=== PATIENT | male | born 1965 | race Caucasian/White ===

== ENCOUNTER → 2018-10-14 | Outpatient (CLI) | payer BC ==
[~2018-10-14] MED LIST: CLINDAMYCIN 300MG 50 ML IV ONE; GENTAMICIN 120MG/NS 100ML 100 ML ONE; HYDRALAZINE HCL10 MG PO; LEXAPRO10 MG PO
[2018-10-14 13:34] LABS: BASOPHILS % 0.3 % (0.0-1.0); EOSINOPHILS # (AUTO) 0.2 (0.0-0.4); HEMATOCRIT 45.2 % (38.2-49.6); HEMOGLOBIN 15.6 g/dL (14.0-18.0); LYMPHOCYTES # (AUTO) 2.8 (1.0-3.2); LYMPHOCYTES % 23.9 % (18.0-39.1); MEAN CORPUSCULAR HEMOGLOBIN 28.3 pg (28-32); MEAN CORPUSCULAR HGB CONC 34.5 g/dL (31-35); MEAN CORPUSCULAR VOLUME 81.9 fL (81-99); MONOCYTES # (AUTO) 1.2 (0.2-0.8); MONOCYTES % 10.1 % (4.4-11.3); NEUTROPHILS # (AUTO) 7.4 (2.1-6.9); NEUTROPHILS % 63.4 % (38.7-80.0); PLATELET COUNT 466 x10e3/uL (140-360); RED BLOOD COUNT 5.52 x10e6/uL (4.3-5.7); RED CELL DISTRIBUTION WIDTH 13.6 % (11.7-14.4)
[2018-10-14 13:48] LABS: ANION GAP 14.1 mmol/L (8-16); BLOOD UREA NITROGEN 14 mg/dL (7-26); BUN/CREATININE RATIO 16 (6-25); CALCIUM 9.7 mg/dL (8.4-10.2); CARBON DIOXIDE 24 mmol/L (22-29); CHLORIDE 103 mmol/L (98-107); CREATININE, SERUM 0.87 mg/dL (0.72-1.25); EST GLOMERULAR FILTRATION RATE > 60 ML/MIN (60-); GLUCOSE 93 mg/dL (74-118); POTASSIUM 4.1 mmol/L (3.5-5.1); SODIUM 137 mmol/L (136-145)
--- OUTSIDE RECORDS SUMMARY | 2018-10-15 09:47 | XMS REPORT | Clinical Summary ---
Author Author [facility] Organization [facility] Address Unknown Phone Unavailable Care Team Providers Care Ict Development Manager Name Role Phone System, Provider Not In MD PCP Unavailable Allergies No Known Allergies Medications Not on file Active Problems Not on file Encounters Care Team Description Date Type Specialty Quan Doyle MD Postural dizziness with near syncope (Primary Dx); Chest discomfort 07/21/2018 Emergency Emergency Medicine after 10/14/2017 Social History Date Tobacco Use Types Packs/Day Years Used Quit: 2008 Former Smoker Alcohol Use Drinks/Week oz/Week Comments No Alcohol Habits Answer Date Recorded How often do you have a drink containing alcohol? Never 07/21/2018 How many drinks containing alcohol do you have on Not asked a typical day when you are drinking? How often do you have six or more drinks on one Not asked occasion? Sex Assigned at Date Recorded Not on file Industry Job Start Date Occupation Not on file Not on file Not on file Travel End Travel History Travel Start No recent travel history available. Last Filed Vital Signs Time Taken Vital Sign Reading 07/21/2018 1:15 PM CDT Blood Pressure 135/75 07/21/2018 1:15 PM CDT Pulse 75 07/21/2018 10:08 AM CDT Temperature 36.4 C (97.6 F) 07/21/2018 1:15 PM CDT Respiratory Rate 18 07/21/2018 1:15 PM CDT Oxygen Saturation 98% - Inhaled Oxygen - Concentration 07/21/2018 10:11 AM CDT Weight 88.5 kg (195 lb) 07/21/2018 10:11 AM CDT Height 167.6 cm (5' 6") 07/21/2018 10:11 AM CDT Body Mass Index 31.47 Plan of Treatment Health Maintenance Due Date Last Done Comments COLON CANCER SCREENING 2016 SHINGLES VACCINES (#1) 2016 INFLUENZA VACCINE 12/09/2018 Procedures Comments Procedure Name Priority Date/Time Associated Diagnosis XR CHEST 1 VW PORTABLE STAT 07/21/2018 10:55 AM CDT ESTIMATED GFR STAT 07/21/2018 10:40 AM CDT CREATINE KINASE, TOTAL STAT 07/21/2018 (CPK) 10:40 AM CDT TROPONIN STAT 07/21/2018 10:40 AM CDT B NATRIURETIC PEPTIDE STAT 07/21/2018 10:40 AM CDT COMPREHENSIVE METABOLIC STAT 07/21/2018 PANEL 10:40 AM CDT PARTIAL THROMBOPLASTIN STAT 07/21/2018 TIME (PTT) 10:40 AM CDT PROTHROMBIN TIME WITH INR STAT 07/21/2018 10:40 AM CDT HC COMPLETE BLD COUNT STAT 07/21/2018 W/AUTO DIFF 10:40 AM CDT ECG ED PRELIMINARY Routine 07/21/2018 INTERPRETATION 10:20 AM CDT ECG 12-LEAD STAT 07/21/2018 10:13 AM CDT after 10/14/2017 Results * XR Chest 1 Vw Portable (07/21/2018 10:55 AM CDT) Specimen Narrative Performed At EXAMINATION:XR CHEST 1 VW PORTABLE RADIANT CLINICAL HISTORY:Chest painnormal ekg, Shortness of breath XR CHEST 1 VW PORTABLEimages are submitted COMPARISON:NONE FINDINGS: The cardiac silhouette is normal in size. The pulmonary vasculature is within normal limits. The lung zones have no focal area of consolidation. There is no pleural effusion or pneumothorax. IMPRESSION: 1. There is no acute cardiopulmonary disease. [id number] Procedure Note Hm Interface, Radiology Results Incoming - 07/21/2018 11:02 AM CDT EXAMINATION: XR CHEST 1 VW PORTABLE CLINICAL HISTORY: Chest pain normal ekg, Shortness of breath XR CHEST 1 VW PORTABLE images are submitted COMPARISON: NONE FINDINGS: The cardiac silhouette is normal in size. The pulmonary vasculature is within normal limits. The lung zones have no focal area of consolidation. There is no pleural effusion or pneumothorax. IMPRESSION: 1. There is no acute cardiopulmonary disease. [id number] Performing Organization Address [facility]/Zipcode Phone Number [place] [address] [place] [address] * Estimated GFR (07/21/2018 10:40 AM CDT) [facility] Estimated GFR >=90 mL/min/1.73 m2 [place] Comment: ROMAN CATHOLIC [facility] rpretation G1 >=90 Normal or high G2 60-89Mildly decreased [id number] Mildly to moderately decreased [id number] Moderately to severely decreased G4 15-29Severely decreased G5 <15Kidney failure The eGFR was calculated using the Chronic Kidney Disease Epidemiology Collaboration (CKD-EPI) equation. Interpretation is based on recommendations of the National Kidney Foundation-Kidney Disease Outcomes Quality Initiative (NKF-KDOQI) published in 2014. Specimen Plasma specimen Performing Organization Address [facility] Phone Number [address] [place] [address] PATHOLOGY AND [facility] [address] * Troponin (07/21/2018 10:40 AM CDT) [facility] Troponin <0.300 0.000 - 0.300 ng/mL [place] Comment: [facility] 0.30 - 1.49 [facility] ng/mlMay indicate increased risk of acute coronary syndrome. >=1.5 ng/ml Consistent with acute myocardial infarction. The diagnostic value of a single normal or non-diagnostic result is questionable.Serial samples at 2-6 hour intervals are required to rule out acute myocardial injury. Specimen Plasma specimen Performing Organization Address [facility] Phone Number [address] [place] [address] PATHOLOGY AND [facility] [address] * Partial thromboplastin time, activated (07/21/2018 10:40 AM CDT) [facility] PTT 29.9 23.0 - 36.0 sec [place] Comment: [facility] PTT therapeutic range for [facility] unfractionated heparin is 61.0-112.0 seconds which corresponds to Anti-Xa 0.3-0.7 U/ml. Specimen Blood Performing Organization Address City/[facility]/Zipcode Phone Number [address] [place] [address] PATHOLOGY AND [facility] [address] * Prothrombin time with INR (07/21/2018 10:40 AM CDT) [facility] Prothrombin 12.0 11.5 - 14.5 sec [place] time [facility] INR 0.9 [place] Comment: [facility] The International Normalized [facility] Ratio (INR) is a therapeutic monitoring tool for patients who are stable on oral anticoagulant therapy. An INR of 2.0-3.0 is suggested for deep vein thrombosis/pulmonary embolism. Specimen Blood Performing Organization Address [facility] Phone Number [address] [place] [address] PATHOLOGY AND [facility]OMIC MEDICINE [address] * CBC with platelet and differential (07/21/2018 10:40 AM CDT) [facility] WBC 14.81 (H) 4.50 - 11.00 k/uL [facility] RBC 5.22 4.40 - 6.00 m/uL [facility] HGB 14.7 14.0 - 18.0 g/dL [facility] HCT 43.8 41.0 - 51.0 % [facility] MCV 83.9 82.0 - 100.0 fL [facility] MCH 28.2 27.0 - 34.0 pg [facility] MCHC 33.6 31.0 - 37.0 g/dL [facility] RDW - SD 40.8 37.0 - 55.0 fL [facility] MPV 9.2 8.8 - 13.2 fL [facility] Platelet count 455 (H) 150 - 400 k/uL [facility] Nucleated RBC 0.00 /100 WBC [facility] Neutrophils 74.0 (H) 39.0 - 69.0 % [facility] Lymphocytes 15.4 (L) 25.0 - 45.0 % [facility] Monocytes 8.0 0.0 - 10.0 % [facility] Eosinophils 2.0 0.0 - 5.0 % [facility] Basophils 0.3 0.0 - 1.0 % [facility] Specimen Blood Performing Organization Address City/[facility] Phone Number [facility] DEPARTMENT [address] [place] [address] PATHOLOGY AND GENOMIC MEDICINE [address] * B natriuretic peptide (07/21/2018 10:40 AM CDT) Pathologist [facility] BNP 23 0 - 100 pg/mL [facility] Specimen Blood Performing Organization Address [facility] Phone Number [address] [place] [address] PATHOLOGY AND GENOMIC MEDICINE [address] * Creatine kinase, total (CPK) (07/21/2018 10:40 AM CDT) [facility] Creatine kinase 31 (L) 39 - 308 U/L [facility] Specimen Plasma specimen Performing Organization Address [facility] Phone Number [address] [place] [address] PATHOLOGY AND GENOMIC MEDICINE [address] * Comprehensive metabolic panel (07/21/2018 10:40 AM CDT) Sodium 141 135 - 148 mEq/L [facility] Potassium 4.2 3.5 - 5.0 mEq/L [facility] Chloride 103 98 - 112 mEq/L [facility] CO2 26 24 - 31 mEq/L [facility] Anion gap 12@ANIO 7 - 15 mEq/L [facility] BUN 8 6 - 20 mg/dL [facility] Creatinine 0.90 0.70 - 1.20 mg/dL [facility] Glucose 106 (H) 65 - 99 mg/dL [facility] Calcium 9.9 8.3 - 10.2 mg/dL [facility] Protein 7.8 6.3 - 8.3 g/dL [place] Comment: [facility] 4.6-7.0 g/dL 1 week 4.4-7.6 g/dL 7 months-1year 5.1-7.3 g/dL 1-2 years5.6-7 .5 g/dL >3 years6.0-8 .0 g/dL 18-150 6.3-8.3 g/dL Albumin 4.5 3.5 - 5.0 g/dL [facility] A/G ratio 1.4 0.7 - 3.8 [facility] Alkaline 107 40 - 129 U/L [place] phosphatase [facility] AST 26 10 - 50 U/L [facility] ALT 54 (H) 5 - 50 U/L [facility] Total bilirubin 0.5 0.0 - 1.2 mg/dL [facility] Specimen Plasma specimen Performing Organization Address City/State/Zipcode Phone Number [facility] [place] [id number] [place] [address] [place] [address] PATHOLOGY AND GENOMIC MEDICINE [facility] [id number] [place] [address] * ECG ED Preliminary Interpretation - Not an Order (07/21/2018 10:20 AM CDT) Narrative Performed At Quan Doyle MD 07/22/20189:07 AM ECG ED Preliminary Interpretation - Not an Order Performed by: Quan Doyle MD Authorized by: Quan Doyle MD ECG reviewed by ED Physician in the absence of a playroom attendant: yes (read at 1015) Previous ECG: Previous ECG:Unavailable Interpretation: Interpretation: non-specific Rate: ECG rate:85 ECG rate assessment: normal Rhythm: Rhythm: sinus rhythm Ectopy: Ectopy: none QRS: QRS axis:Normal QRS intervals:Normal Conduction: Conduction: normal ST segments: ST segments:Non-specific T waves: T waves: non-specific * ECG 12 lead (07/21/2018 10:13 AM CDT) Ventricular 85 [facility] rate Atrial rate 85 [facility] VT interval 134 [facility] QRSD interval 90 [facility] QT interval 372 [facility] QTC interval 442 [facility] P axis 1 29 [facility] QRS axis 1 74 [facility] T wave axis 29 [facility] EKG impression Normal sinus rhythm-Cannot [facility] rule out Anterior infarct , age undetermined-Abnormal ECG-No previous ECGs available- Specimen Narrative Performed At Performing Organization Address City/State/Zipcode Phone Number [facility] [place] [address] [place] [address] after 10/14/2017 Insurance Type Payer Benefit Subscriber ID Effective Phone Address Plan / Dates Group PPO BCBS BCBS OUT xxxxxxxxxxxxxxx 2016-P OF STATE resent Advance Directives Patient has advance care planning documents on file. For more information, plejamar e contact: Saud Asher [address] [place] [address]
== END | disposition home or self-care (01) ==
LOC: RAD 05:00 → OR 10-15 06:32 → EDSTATUS 10-15 08:30
PROVIDERS: ATTEND Urology
DX: R97.20 Elevated prostate specific antigen [PSA] (principal); Z01.810 Encounter for preprocedural cardiovascular examination; Z01.812 Encounter for preprocedural laboratory examination; Z53.09 Procedure and treatment not carried out because of other contraindication
CPT/HCPCS: 36415; 80048; 85025; 93005; J1580

== ENCOUNTER → 2018-10-29 | Day surgery (SDC) | payer BC ==
[~2018-10-29] MED LIST changes: +FENTANYL CITRATE/PF 100MCG/2 ML INJ ONE; +HYDROCODONE/APAP 5MG-325MG TAB ONE; +LIDOCAINE HCL 2% LOCAL INJ 5 ML SDV VIAL INJ ONE; +MIDAZOLAM HCL 2 MG/2 ML VIAL ONE; +PROPOFOL IV EMULSION 10 MG/ML 20 ML VIAL ONE
--- OUTSIDE RECORDS SUMMARY | 2018-10-29 07:25 | XMS REPORT | Clinical Summary ---
Author Author [facility] Address Unknown Phone Unavailable Care Team Providers Care Sql Server Architect Name Role Phone System, Provider Not In MD PCP Unavailable Allergies No Known Allergies Medications Not on file Active Problems Not on file Encounters Care Team Description Date Type Specialty Quan Doyle MD Postural dizziness with near syncope (Primary Dx); Chest discomfort 07/21/2018 Emergency Emergency Medicine after 10/28/2017 Social History Date Tobacco Use Types Packs/Day [...] Health Maintenance Due Date Last Done Comments COLONOSCOPY SCREENING 2016 SHINGLES VACCINES (#1) 2016 INFLUENZA [...] 12-LEAD STAT 07/21/2018 10:13 AM CDT after 10/28/2017 Results * XR Chest 1 Vw Portable [...] 1. There is no acute cardiopulmonary disease. [id number] Procedure Note Hm Interface, Radiology Results Incoming [...] 1. There is no acute cardiopulmonary disease. [id number] Performing Organization Address [facility]/Zipcode Phone Number CECI [address] [place] [address] * Estimated GFR (07/21/2018 10:40 AM CDT) [facility] Estimated GFR >=90 mL/min/1.73 m2 [place] Comment: [facility] rpretation G1 >=90 Normal or high G2 60-89Mildly decreased [id number] Mildly to moderately decreased [id number] Moderately to severely decreased G4 15-29Severely decreased G5 <15Kidney failure The eGFR was calculated using the Chronic Kidney Disease Epidemiology Collaboration (CKD-EPI) equation. Interpretation is based on recommendations of the National Kidney Foundation-Kidney Disease Outcomes Quality Initiative (NKF-KDOQI) published in 2014. Specimen Plasma specimen Performing Organization Address [facility] Phone Number [address] [place] [address] PATHOLOGY AND [facility] MEDICINE [address] * Troponin (07/21/2018 10:40 AM CDT) [facility] Troponin <0.300 0.000 - 0.300 ng/mL [place] Comment: [facility] 0.30 - 1.49 [facility] ng/mlMay indicate increased risk of acute coronary syndrome. >=1.5 ng/ml Consistent with acute myocardial infarction. The diagnostic value of a single normal or non-diagnostic result is questionable.Serial samples at 2-6 hour intervals are required to rule out acute myocardial injury. Specimen Plasma specimen Performing Organization Address [facility] Phone Number [address] [place] [address] PATHOLOGY AND [facility] MEDICINE [address] * Partial thromboplastin time, activated (07/21/2018 10:40 AM CDT) [facility] PTT 29.9 23.0 - 36.0 sec [place] Comment: [facility] PTT therapeutic range for [facility] unfractionated heparin is 61.0-112.0 seconds which corresponds to Anti-Xa 0.3-0.7 U/ml. Specimen Blood Performing Organization Address City/[facility]/Zipcode Phone Number [address] [place] [address] PATHOLOGY AND GENOMIC MEDICINE [address] * Prothrombin time with INR (07/21/2018 10:40 AM CDT) [facility] Prothrombin 12.0 11.5 - 14.[address] [facility] INR 0.9 [place] Comment: [facility] The International Normalized [facility] Ratio (INR) is a therapeutic monitoring tool for patients who are stable on oral anticoagulant therapy. An INR of 2.0-3.0 is suggested for deep vein thrombosis/pulmonary embolism. Specimen Blood Performing Organization Address [facility] Phone Number [address] [place] [address] PATHOLOGY AND GENOMIC MEDICINE [address] * CBC with platelet and differential (07/21/2018 10:40 AM CDT) [facility] WBC 14.81 (H) 4.50 - 11.00 k/uL [facility] RBC 5.22 4.40 - 6.00 m/uL [facility] HGB 14.7 14.0 - 18.0 g/dL [facility] HCT 43.8 41.0 - 51.0 % [facility] MCV 83.9 82.0 - 100.0 fL [facility] MCH 28.2 27.0 - 34.0 pg [facility] MCHC 33.6 31.0 - 37.0 g/dL [facility] RDW - SD 40.8 37.0 - 55.0 fL [facility] MPV 9.2 8.8 - 13.2 fL [facility] Platelet count 455 (H) 150 - 400 k/uL [facility] Nucleated RBC 0.00 /100 WBC [facility] Neutrophils 74.0 (H) 39.0 - 69.0 % [facility] Lymphocytes 15.4 (L) 25.0 - 45.0 % [facility] Monocytes 8.0 0.0 - 10.0 % [facility] Eosinophils 2.0 0.0 - 5.0 % [facility] Basophils 0.3 0.0 - 1.0 % [facility] Specimen Blood Performing Organization Address [facility] Phone Number [facility] DEPARTMENT [address] [place] [address] PATHOLOGY AND GENOMIC MEDICINE [address] * B natriuretic peptide (07/21/2018 10:40 AM CDT) Pathologist [facility] BNP 23 0 - 100 pg/mL [facility] Specimen Blood Performing Organization Address [facility] Phone Number [address] [place] [address] PATHOLOGY AND GENOMIC MEDICINE [address] * Creatine kinase, total (CPK) (07/21/2018 10:40 AM CDT) Pathologist [facility] Creatine kinase 31 (L) 39 - 308 U/L [facility] Specimen Plasma specimen Performing Organization Address [facility] Phone Number [address] [place] [address] PATHOLOGY AND GENOMIC MEDICINE [address] * Comprehensive metabolic panel (07/21/2018 10:40 AM CDT) Sodium 141 135 - 148 mEq/L [facility] Potassium 4.2 3.5 - 5.0 mEq/L [facility] Chloride 103 98 - 112 mEq/L [facility] CO2 26 24 - 31 mEq/L [facility] Anion gap 12@ANIO 7 - 15 mEq/L [facility] BUN 8 6 - 20 mg/dL [facility] Creatinine 0.90 0.70 - 1.20 mg/dL [facility] Glucose 106 (H) 65 - 99 mg/dL [facility] Calcium 9.9 8.3 - 10.2 mg/dL [facility] Protein 7.8 6.3 - 8.3 g/dL [place] Comment: [facility] 4.6-7.0 g/dL 1 week 4.4-7.6 g/dL 7 months-1year 5.1-7.3 g/dL 1-2 years5.6-7 .5 g/dL >3 years6.0-8 .0 g/dL 18-150 6.3-8.3 g/dL Albumin 4.5 3.5 - 5.0 g/dL [facility] A/G ratio 1.4 0.7 - 3.8 [facility] Alkaline 107 40 - 129 U/L [place] phosphatase [facility] AST 26 10 - 50 U/L [facility] ALT 54 (H) 5 - 50 U/L [facility] Total bilirubin 0.5 0.0 - 1.2 mg/dL [facility] Specimen Plasma specimen Performing Organization Address City/State/Zipcode Phone Number [facility] [place] [id number] [place] [address] [place] [address] PATHOLOGY AND GENOMIC MEDICINE [facility] [id number] [place] [address] * ECG ED Preliminary Interpretation - Not an Order (07/21/2018 10:20 AM CDT) Narrative Performed At Quan Doyle MD 07/22/20189:07 AM ECG ED Preliminary Interpretation - Not an Order Performed by: Quan Doyle MD Authorized by: Quan Doyle MD ECG reviewed by ED Physician in the absence of a hog pusher: yes (read at 1015) Previous ECG: Previous ECG:Unavailable Interpretation: Interpretation: non-specific Rate: ECG rate:85 ECG rate assessment: normal Rhythm: Rhythm: sinus rhythm Ectopy: Ectopy: none QRS: QRS axis:Normal QRS intervals:Normal Conduction: Conduction: normal ST segments: ST segments:Non-specific T waves: T waves: non-specific * ECG 12 lead (07/21/2018 10:13 AM CDT) Ventricular 85 [facility] rate Atrial rate 85 [facility] SC interval 134 [facility] QRSD interval 90 [...] At Performing Organization Address City/State/Zipcode Phone Number [facility] [address] [place] [address] after 10/28/2017 Insurance Type Payer Benefit Subscriber ID Effective Phone Address Plan / Dates Group PPO BCBS BCBS OUT xxxxxxxxxxxxxxx 2016-P OF STATE resent Advance Directives Patient has advance care planning documents on file. For more information, nallely e contact: Saud Asher [address] [place] [address]
[2018-10-29 09:00] VITALS: BP 116/84
--- NOTE | 2018-10-29 15:51 | Diagnostic Imaging Report ---
Transrectal ultrasound of the prostate, ultrasound guidance. TECHNIQUE: Sonographic guidance was provided to Dr. Jose Glover for the purposes of a transrectal prostate biopsy. HISTORY: Elevated PSA FINDINGS: The seminal vesicles are present and unremarkable. The gland size measures 3.6 x 4.9 x 4.3 cm. Volume is 40.4 cubic cm. The peripheral zone is homogeneous without focal nodules. The transition zone demonstrates no focal abnormalities. IMPRESSION: As above Signed by: Dr. Dipak Laurent MD on 10/29/2018 3:47 PM
--- NOTE | 2018-11-22 01:02 | Operative Report ---
DATE OF PROCEDURE: 10/29/2018 SURGEON: Jose Glover MD PREOPERATIVE DIAGNOSIS: PSA of 8. POSTOPERATIVE DIAGNOSIS: PSA of 8, benign prostatic hypertrophy. PROCEDURES: 1. Prostate ultrasound. 2. Ultrasound guidance needle biopsy. 3. Needle biopsy of prostate. ANESTHESIA: General. ESTIMATED BLOOD LOSS: Minimal. COMPLICATIONS: None. INDICATIONS FOR PROCEDURE: Mr. Rhodes is a 52-year-old male with a history of elevated PSA. He and I had a long discussion about alternatives, risks, and benefits including doing nothing and prostate biopsy. He voiced understanding of the options, alternatives, the risks, and benefits and he elected to proceed. PROCEDURE IN DETAIL: After informed consent was obtained, the patient was taken to operating room suite, underwent anesthesia by Anesthesia Service. He was placed in left lateral decubitus position. The patient had undergone preoperative IV antibiotics as well as preoperative enema. Denied taking blood thinners. Transrectal ultrasound was probe, was inserted atraumatically anally. Prostate ultrasound was performed revealing normal-appearing seminal vesicles, mildly hypoechoic base, scattered calcifications, the volume calculated at 40.37 mL. IMPRESSION: 1. Benign prostatic hypertrophy. 2. Ultrasound guidance: Present geothermal field technician, guided with needle biopsy of the prostate. 3. Needle biopsy of the prostate: A 10-core approach was performed and the prostate biopsy. The patient tolerated procedure well, was transferred to recovery room in excellent condition. Jose Glover MD ES/MODL /[id number]
== END | disposition home or self-care (01) ==
LOC: OR 07:22
PROVIDERS: ATTEND Urology
DX: R97.20 Elevated prostate specific antigen [PSA] (principal); N41.0 Acute prostatitis; N41.1 Chronic prostatitis; N40.0 Benign prostatic hyperplasia without lower urinary tract symptoms; K44.9 Diaphragmatic hernia without obstruction or gangrene; I10 Essential (primary) hypertension; F41.9 Anxiety disorder, unspecified; Z87.891 Personal history of nicotine dependence
CPT/HCPCS: 55700; 76872; 76998; 88305; J1580; J2001; J2250; J2704; J3010

== ENCOUNTER → 2022-10-10 | Outpatient (CLI) | payer BC ==
[~2022-10-10] MED LIST changes: -CLINDAMYCIN 300MG 50 ML IV ONE; -FENTANYL CITRATE/PF 100MCG/2 ML INJ ONE; -GENTAMICIN 120MG/NS 100ML 100 ML ONE; -HYDROCODONE/APAP 5MG-325MG TAB ONE; +IOPAMIDOL 370 MG/ML 100 ML INFUS..BTL INJ ONE; -LIDOCAINE HCL 2% LOCAL INJ 5 ML SDV VIAL INJ ONE; -MIDAZOLAM HCL 2 MG/2 ML VIAL ONE; -PROPOFOL IV EMULSION 10 MG/ML 20 ML VIAL ONE; +SODIUM CHLORIDE 0.9% 100 ML ONE
[2022-10-10 09:06] LABS: CREATININE, SERUM 0.92 mg/dL (0.72-1.25)
== END ==
LOC: CT 07:58
PROVIDERS: ATTEND Urology
DX: D41.00 Neoplasm of uncertain behavior of unspecified kidney (principal)
CPT/HCPCS: 36415; 74170; 82565; 84520; J7050; Q9967